=== PATIENT | female | born 1955 | race Caucasian/White ===

== ENCOUNTER → 2019-02-21 | Outpatient (CLI) | payer BC ==
--- NOTE | 2019-02-21 11:49 | RAD ---
EXAM DESCRIPTION: Pelvis CLINICAL HISTORY: 63 years Female, M25.561, M25.551 COMPARISON: None. FINDINGS: Single view of the pelvis demonstrates the bony pelvic ring intact. Each hip is normally aligned without evidence of fracture or dislocation. The SI joints are unremarkable. Advanced lower lumbar facet arthropathy and likely degenerative disc disease is noted. IMPRESSION: Negative pelvis one view. Electronically signed by: Farhat Smith MD 02/21/2019 11:47 AM CDT
--- NOTE | 2019-02-21 11:50 | RAD ---
EXAM DESCRIPTION: Knee,Right Complete CLINICAL HISTORY: 63 years, Female, M25.561, M25.551 COMPARISON: None TECHNIQUE: Four views right knee FINDINGS: Four views right knee demonstrate moderate joint effusion or hemarthrosis. Joint space narrowing medially is present. Patella appears intact. Slight deformity of the fibular shaft on the lateral view suggests possibly an old healed fracture but no acute injury noted. IMPRESSION: 1. Sclerosis and joint space narrowing medially with a small marginal osteophytes consistent with moderately advanced medial degenerative osteoarthropathy. 2. No acute fracture of the knee noted although joint effusion or hemarthrosis suggests the possibility of internal derangement. Electronically signed by: Farhat Smith MD 02/21/2019 11:48 AM CDT
== END ==
LOC: RAD 11:00
PROVIDERS: ATTEND Orthopaedic Surgery
DX: M25.761 Osteophyte, right knee (principal); M25.861 Other specified joint disorders, right knee; M25.551 Pain in right hip

== ENCOUNTER → 2019-09-22 | Outpatient (CLI) | payer BC | LOC: LAB.NP 11:54 | PROVIDERS: ATTEND Orthopaedic Surgery | DX: M17.11 Unilateral primary osteoarthritis, right knee (principal) ==

== ENCOUNTER → 2020-07-16 | Outpatient (CLI) | payer MEDICARE, OTHER ==
--- NOTE | 2020-07-16 10:16 | RAD ---
EXAM DESCRIPTION: Knee,Right Complete CLINICAL HISTORY: 64 years Female, PAIN IN RIGHT KNEE COMPARISON: Right knee radiographs 02/21/2019 TECHNIQUE: 4 view radiograph of the right knee. IMPRESSION: No acute displaced fracture. Severe joint space narrowing at the medial weightbearing knee compartment as before but with moderately worsened subchondral sclerosis of the medial tibial plateau and medial femoral condyle. Increased moderate medial joint line osteophytes. Ill-defined calcific density centrally within the weightbearing knee compartments likely representing meniscal degeneration. Moderate patellofemoral arthrosis. Large knee joint effusion. Mild lateral patellar tilt but no subluxation. No soft tissue defect or radiopaque foreign body. Electronically signed by: Blas Jim MD 07/16/2020 10:14 AM CDT
--- NOTE | 2020-07-16 10:20 | RAD ---
EXAM DESCRIPTION: Pelvis CLINICAL HISTORY: 64 years Female, HIP PAIN RIGHT COMPARISON: 02/21/2019. TECHNIQUE: Single view radiograph of the pelvis. IMPRESSION: Partially obscured sacrum and coccyx by overlying bowel. No acute displaced fracture. No dislocation. Mild right and moderate left arthrosis of the hips. Signal is within the right and left hemipelvis. Mild sclerosis of the SI joints and pubic joints. Lumbar spondylosis. Electronically signed by: Blas Jim MD 07/16/2020 10:18 AM CDT
== END ==
LOC: RAD 07:59
PROVIDERS: ATTEND Orthopaedic Surgery
DX: M16.0 Bilateral primary osteoarthritis of hip (principal); M47.896 Other spondylosis, lumbar region; M53.3 Sacrococcygeal disorders, not elsewhere classified; M17.11 Unilateral primary osteoarthritis, right knee; M25.761 Osteophyte, right knee; M85.861 Other specified disorders of bone density and structure, right lower leg; M22.8X1 Other disorders of patella, right knee; M25.461 Effusion, right knee

== ENCOUNTER → 2020-10-30 | Outpatient (CLI) | payer MEDICARE, OTHER ==
--- NOTE | 2020-10-31 09:34 | RAD ---
EXAM DESCRIPTION: Chest,2 Views CLINICAL HISTORY: PRE-OP COMPARISON: None TECHNIQUE: PA/lateral FINDINGS: Healed left rib fractures. Heart size is normal with normal pulmonary vascularity. No pleural effusion or pneumothorax. Lungs are clear with no consolidating infiltrate. Lateral view shows intact sternum and spurring in the T-spine. IMPRESSION: No acute process is identified in the chest. Electronically signed by: David Weinberg MD 10/31/2020 9:32 AM [employer]
== END ==
LOC: YCFC.O 16:01
PROVIDERS: ATTEND Family Medicine
DX: Z01.818 Encounter for other preprocedural examination (principal); Z01.89 Encounter for other specified special examinations

== ENCOUNTER 2020-11-13 05:52 | Inpatient (IN) | payer MEDICARE, OTHER ==
[2020-11-13] MEDS ORDERED: SODIUM CHLORIDE 0.9% 100ML 100 ML IVPB ONE (06:38)
[2020-11-13] MEDS ORDERED: LACTATED RINGERS 1,000 ML ONE (06:38)
[2020-11-13] MEDS ORDERED: ceFAZolin SODIUM 1 GM VIAL ONE (06:38)
[2020-11-13] MEDS ORDERED: TRANEXAMIC ACID 1,000 MG/10 ML VIAL ONE ×2 (06:38→06:39)
[2020-11-13] MEDS ORDERED: SODIUM CHL 0.9% 100ML MINI-BAG 100 ML IVPB ONE (06:38)
[2020-11-13] MEDS ORDERED: SODIUM CHLORIDE 0.9% 250ML 250 ML ONE (06:38)
[2020-11-13] MEDS ORDERED: VANCOMYCIN HCL INJ 1,000 MG VIAL IVPB ONE ×2 (06:38→09:43)
[2020-11-13] MEDS ORDERED: TRANEXAMIC ACID 1,000 MG/10 ML VIAL IV ONE (09:32)
[2020-11-13] MEDS ORDERED: LEVALBUTEROL NEBS 1.25 MG/3 ML VIAL NEB ONE (10:19)
[2020-11-13] MEDS ORDERED: FAMOTIDINE INJ 10 MG/ML VIAL IV ONE (10:22)
[2020-11-13] MEDS ORDERED: HYDROmorphone HCL INJ 2 MG/ML VIAL ONE (10:22)
[2020-11-13] MEDS ORDERED: KETAMINE HCL 100 MG/ML VIAL ONE (10:22)
[2020-11-13] MEDS ORDERED: MIDAZOLAM INJ 2 MG/2 ML VIAL ONE ×2 (10:23→10:37)
[2020-11-13] MEDS: ceFAZolin SODIUM 1 GM VIAL ONE ×3 (11:22→12:21)
[2020-11-13] MEDS: BUPIVACAINE 0.5% 30 ML VIAL INJ ONE ×2 (11:22→11:56)
[2020-11-13] MEDS: VANCOMYCIN HCL INJ 1,000 MG VIAL IVPB ONE ×3 (11:22→12:21)
[2020-11-13] MEDS: BUPIVACAINE LIPOSOME 13.3 MG/ML VIAL INJ ONE ×2 (11:22→11:56)
[2020-11-13] MEDS ORDERED: DEXMEDETOMIDINE HCL 200 MCG/2 ML INJ IV ONE (11:25)
[2020-11-13] MEDS ORDERED: ELECTROLYTE-A 1,000 ML IVS ONE (12:52)
[2020-11-13] MEDS ORDERED: NALOXONE HCL INJ 0.4 MG/ML VIAL IV PRN (13:46)
[2020-11-13] MEDS ORDERED: ALUMINUM & MAGNESIUM HYDROXIDE 30 ML UD PO PRN (13:46)
[2020-11-13] MEDS ORDERED: hydrOXYzine HCl 25 MG TAB PO PRN (13:46)
[2020-11-13] MEDS ORDERED: CYCLOBENZAPRINE HCL 10 MG TAB PO PRN (13:46)
[2020-11-13] MEDS ORDERED: ZOLPIDEM TARTRATE 5 MG TAB PO PRN (13:46)
[2020-11-13] MEDS ORDERED: traMADol HCL 50 MG TAB PO PRN (13:46)
[2020-11-13] MEDS ORDERED: ACETAMINOPHEN 500 MG TAB PO PRN (13:46)
[2020-11-13] MEDS ORDERED: DEX 5% W/NACL 0.45% 1000ML 1,000 ML IVS PRN (13:46)
[2020-11-13] MEDS ORDERED: PROMETHAZINE HCL INJ 25 MG in SODIUM CHLORIDE 0.9% 50ML 50 ML IVPB PRN (13:46)
[2020-11-13] MEDS ORDERED: PROMETHAZINE HCL INJ 12.5 MG in SODIUM CHLORIDE 0.9% 50ML 50 ML IVPB PRN (13:46)
[2020-11-13] MEDS ORDERED: BISACODYL SUPPOSITORY 10 MG PR PRN (13:46)
[2020-11-13] MEDS ORDERED: SODIUM CHLORIDE 0.9% (FLUSH) 10 ML SYG IV PRN (13:46)
[2020-11-13] MEDS ORDERED: MORPHINE SULFATE INJ 10 MG/ML VIAL IV PRN (13:46)
[2020-11-13] MEDS ORDERED: ACETAMINOPHEN 325 MG TAB PO PRN (13:46)
[2020-11-13] MEDS ORDERED: MORPHINE SULFATE INJ 10 MG/ML VIAL IM PRN (13:46)
[2020-11-13] MEDS ORDERED: BENZOCAINE-MENTH LOZ (CEPACOL) 1 EA LOZ MT PRN (13:46)
[2020-11-13] MEDS ORDERED: TRANEXAMIC ACID INJ 1,000 MG in SODIUM CHLORIDE 0.9% 100ML 100 ML IVPB ONE (13:46)
[2020-11-13] MEDS ORDERED: MAGNESIUM HYDROXIDE 30 ML UD PO PRN (13:46)
[2020-11-13] MEDS ORDERED: CADD ADMIN SET 1 EA PKG INJ ONE (13:57)
--- NOTE | 2020-11-13 13:57 | RAD ---
EXAM DESCRIPTION: Knee,Right 1 or 2 Views CLINICAL HISTORY: 64 years Female, POST OP COMPARISON: None. Findings: Location: Right knee Recent right total knee arthroplasty. No evidence of hardware complication. No acute fracture or dislocation. Expected postsurgical appearance of the overlying soft tissues. IMPRESSION: Recent right total knee arthroplasty. No evidence of hardware complication. Electronically signed by: Ashish Garrido MD 11/13/2020 1:56 PM [facility]
[2020-11-13] MEDS ORDERED: MORPHINE PCA 1 MG/ML 100 ML BAG IVPB SCH (14:00)
[2020-11-13] MEDS ORDERED: IV SET AND CAP CHANGE INJ INJ SCH (14:00)
[2020-11-13] MEDS ORDERED: PROPOFOL 200 MG/20 ML VIAL IV ONE (15:35)
[2020-11-13] MEDS ORDERED: MAGNESIUM SULFATE INJ 1 GM/2 ML VIAL IVPB ONE (15:35)
[2020-11-13] MEDS ORDERED: SODIUM CHLORIDE 0.9% 50 ML VIAL INJ ONE (15:35)
[2020-11-13] MEDS ORDERED: EPINEPHrine HCL AMP 1 MG/ML AMP IVPB ONE (15:35)
[2020-11-13] MEDS ORDERED: DEXAMETHASONE INJ 10 MG/ML VIAL IV ONE (15:35)
[2020-11-13] MEDS: CELECOXIB 100 MG CAP PO SCH (17:03)
[2020-11-13] MEDS: VANCOMYCIN HCL INJ 1,000 MG in SODIUM CHLORIDE 0.9% 250ML 250 ML IVPB SCH (17:11)
[2020-11-13] MEDS: ceFAZolin SODIUM 2 GM in SODIUM CHLORIDE 0.9% 100ML 100 ML IVPB SCH (17:11)
[2020-11-13] MEDS ORDERED: DOCUSATE CALCIUM 240 MG CAP ONE (19:22)
[2020-11-13] MEDS ORDERED: ENOXAPARIN SODIUM 30 MG/0.3 ML SYG SUBCU ONE (19:23)
[2020-11-13] MEDS: TEMAZEPAM 15 MG CAP PO PRN ×2 (20:09→21:32)
[2020-11-13] MEDS: DOCUSATE CALCIUM 240 MG CAP PO SCH (20:09)
--- NOTE | 2020-11-13 22:15 | RAD ---
EXAM DESCRIPTION: Fluoroscopy Up to 1Hr CLINICAL HISTORY: 64 years Female, RIGHT TKA COMPARISON: None. IMPRESSION: Operative changes of right knee arthroplasty. Please see procedure report for full details. Fluoroscopy time: 3 seconds Fluoroscopic images: 1 Total DAP: mGy-m2 Electronically signed by: Blas Jim MD 11/13/2020 10:[address] [facility] [facility]
[2020-11-13] MEDS: ENOXAPARIN SODIUM 30 MG/0.3 ML SYG SUBCU SCH (22:16)
[2020-11-14] MEDS: ceFAZolin SODIUM 2 GM in SODIUM CHLORIDE 0.9% 100ML 100 ML IVPB SCH ×2 (00:03→07:33)
[2020-11-14] MEDS: VANCOMYCIN HCL INJ 1,000 MG in SODIUM CHLORIDE 0.9% 250ML 250 ML IVPB SCH (05:28)
[2020-11-14] MEDS ORDERED: MAGNESIUM OXIDE 400 MG TAB ONE (07:18)
[2020-11-14] MEDS: CELECOXIB 100 MG CAP PO SCH ×2 (07:33→17:24)
[2020-11-14] MEDS: MAGNESIUM OXIDE 400 MG TAB PO SCH (07:39)
[2020-11-14] MEDS ORDERED: LEVOTHYROXINE SODIUM 0.075 MG TAB ONE (09:32)
[2020-11-14] MEDS ORDERED: ALPRAZolam 0.5 MG TAB ONE (09:45)
[2020-11-14] MEDS ORDERED: NON-FORMULARY MEDICATION 1 EA MIS (Alprazolam [Xanax] 1 MG) PO SCH (09:45)
[2020-11-14] MEDS: CETIRIZINE HCL 10 MG TAB PO SCH (09:52)
[2020-11-14] MEDS: LEVOTHYROXINE SODIUM 0.075 MG TAB PO SCH (09:52)
[2020-11-14] MEDS: ALPRAZolam 0.5 MG TAB PO SCH (10:30)
[2020-11-14] MEDS: NICOTINE PATCH 14 MG TD SCH (10:43)
[2020-11-14] MEDS: ENOXAPARIN SODIUM 30 MG/0.3 ML SYG SUBCU SCH ×2 (10:43→22:43)
--- NOTE | 2020-11-14 13:33 | CONS ---
SUPERVISING PHYSICIAN: Hillary Hernandez MD DATE OF CONSULTATION: 11/14/20 REASON FOR CONSULTATION: Medical management postoperative total knee arthroplasty. HISTORY OF PRESENT ILLNESS: This is a 64-year-old female patient who was admitted to the hospital yesterday for operative intervention for a right total knee arthroplasty. She has osteoarthritis of that right knee and multiple conservative measures have failed to bring her any relief. She has requested Dr. Zeferino Kaiser, orthopedic surgeon, for operative intervention. She had no intraoperative complications and was then admitted to the hospital in stable condition. PAST MEDICAL HISTORY: 1. Hypothyroidism. 2. Hyperlipidemia. 3. Anxiety. PAST SURGICAL HISTORY: 1. Meniscal repair to the right knee. OUTPATIENT MEDICATIONS: Per the EMR and awaiting verification. ALLERGIES: NO KNOWN DRUG ALLERGIES. SOCIAL HISTORY: She lives in [place]. She smokes about one pack of cigarettes daily. There is no history of ETOH or illicit drug use. REVIEW OF SYSTEMS: Negative except as per history of present illness. PHYSICAL EXAMINATION: VITAL SIGNS: Temperature 99, heart rate 79, blood pressure 128/77, respiratory rate 16, O2 saturation 97% on room air. GENERAL: This is a 64-year-old female patient sitting up on the side of her bed. She is in no acute distress. HEENT: Normocephalic, atraumatic. Pupils are equal and reactive. Oropharynx is clear. NECK: Supple with full range of motion. RESPIRATORY: Essentially clear to auscultation bilaterally. CARDIOVASCULAR: Regular rate and rhythm. GASTROINTESTINAL: Abdomen is soft, nondistended, nontender. Bowel sounds are positive. EXTREMITIES: She has an RUPESH wrap to her right leg, a dressing to the right knee that is dry and intact. Bilateral pedal pulses are palpable at +2. NEUROLOGIC: Awake, alert and oriented times three. SKIN: [place], warm and dry. LABORATORY: Hemoglobin 11.5, hematocrit 33.8. UDS was negative except for positive for benzodiazepines which she is on routinely. Labs and operative procedures are per the EMR. IMPRESSION: 1. Osteoarthritis of the right knee status post right total knee arthroplasty, postoperative day #1, performed by Dr. Zeferino Kaiser, orthopedic surgeon. 2. Hypothyroidism. 3. Hyperlipidemia. 4. Anxiety. PLAN: The patient has had her routine medications restarted. Operative issues will be per Dr. Kaiser. She has had her morning physical therapy and did very well. We will continue with that until discharge. After discharge, she will continue at [facility] for physical therapy as an outpatient. I have encouraged good pulmonary hygiene. We will continue to monitor and treat as needed. #[id number] MTDD
[2020-11-14] MEDS: HYDROcodone 5MG/APAP 325MG 1 EA TAB PO PRN (14:11)
[2020-11-14] MEDS ORDERED: ESCITALOPRAM 10 MG TAB ONE (18:56)
[2020-11-14] MEDS ORDERED: SIMVASTATIN 20 MG TAB ONE (18:56)
[2020-11-14] MEDS: ESCITALOPRAM 10 MG TAB PO SCH (20:21)
[2020-11-14] MEDS: DOCUSATE CALCIUM 240 MG CAP PO SCH (20:21)
[2020-11-14] MEDS: SIMVASTATIN 20 MG TAB PO SCH (20:22)
[2020-11-14] MEDS ORDERED: NON-FORMULARY MEDICATION 1 EA MIS (Simvastatin [Zocor] 40 MG) PO SCH (21:00)
[2020-11-14] MEDS: ONDANSETRON INJ 4 MG/2 ML VIAL IV PRN (21:13)
[2020-11-15] MEDS: CELECOXIB 100 MG CAP PO SCH ×2 (07:31→16:16)
[2020-11-15] MEDS ORDERED: SODIUM CHLORIDE 0.9% 50ML 50 ML ONE (07:57)
[2020-11-15] MEDS ORDERED: ceFAZolin SODIUM 1 GM VIAL ONE ×2 (07:57→22:58)
[2020-11-15] MEDS: LEVOTHYROXINE SODIUM 0.075 MG TAB PO SCH (08:33)
[2020-11-15] MEDS: ceFAZolin SODIUM 2 GM in SODIUM CHLORIDE 0.9% 100ML 100 ML IVPB SCH ×3 (08:33→23:45)
[2020-11-15] MEDS: CETIRIZINE HCL 10 MG TAB PO SCH (08:33)
[2020-11-15] MEDS: ALPRAZolam 0.5 MG TAB PO SCH (08:33)
[2020-11-15] MEDS: MAGNESIUM OXIDE 400 MG TAB PO SCH (08:33)
[2020-11-15] MEDS: BIFIDOBACTERIUM INFANTIS 4 MG CAP PO SCH (08:34)
[2020-11-15] MEDS: NICOTINE PATCH 14 MG TD SCH (08:34)
[2020-11-15] MEDS: ONDANSETRON INJ 4 MG/2 ML VIAL IV PRN (08:55)
[2020-11-15] MEDS: SODIUM CHLORIDE 0.9% (FLUSH) 10 ML SYG IV SCH ×2 (09:00→20:45)
--- NOTE | 2020-11-15 09:02 | PN ---
DATE: 11/14/20 SUBJECTIVE: Ms. Luo is doing well. She is up to a chair with the knee bent to 90 degrees with no pain. OBJECTIVE: Afebrile. Vital signs stable. Dressing is clean, dry and intact. ASSESSMENT: Status post total knee arthroplasty. PLAN: The plan at this point is to continue weightbearing as tolerated. #[id number] MTDD
--- NOTE | 2020-11-15 09:05 | PN ---
DATE: 11/15/20 SUBJECTIVE: Ms. Luo had some nausea overnight. OBJECTIVE: Afebrile. Vital signs stable. Wound is clean. There are no signs or symptoms of infection. ASSESSMENT: 1. Status post total knee arthroplasty. 2. Nausea. PLAN: At this point, she has improved somewhat with Phenergan and Zofran. She is going to continue with limiting her diet until she feels as though she is able to tolerate. Otherwise, she will continue with physical therapy. [facility][id number]
--- NOTE | 2020-11-15 09:13 | OP ---
DATE OF PROCEDURE: 11/13/20 PREOPERATIVE DIAGNOSIS: 1. Osteoarthritis of the knee. POSTOPERATIVE DIAGNOSIS: 1. Osteoarthritis of the knee. PROCEDURE: 1. Total knee arthroplasty. SURGEON: Zeferino Kaiser MD. SURVEILLANCE SUPERVISOR: Haris Newman CST, SA-C. ANESTHESIA: General anesthesia. COMPLICATIONS: None. FINDINGS: Severe arthritis of the knee. INDICATION: Ms. Luo has a long history of knee pain for which she has undergone treatment and has failed conservative measures. She has requested operative intervention. After discussing the risks, benefits and alternatives to operative intervention, the patient has given informed consent for total knee arthroplasty. PROCEDURE: The patient was brought to the Operating Room and placed in supine position. General anesthesia was induced and the patient's leg was sterilely prepped and draped. Following prepping and draping, the distal femur was exposed and using an intramedullary guide, the distal femoral cut was made. The appropriate sized cutting block was measured, pinned into place, and the anterior, posterior, and chamfer cuts were made. The ACL was transected and the tibia was subluxed. Both the medial and lateral menisci were removed. An intramedullary guide was used to make the proximal tibial cut. The appropriate sized base plate was placed and a trial polyethylene was placed. The trial femur was placed, the knee was reduced, and the knee was taken through a range of motion. The knee was stable in anterior, posterior, varus and valgus stress. The patella tracked anatomically without evidence of subluxation or dislocation. After trialing, the trial components were removed and the bony surfaces were thoroughly irrigated with saline. Following irrigation, the surfaces were dried and the final components were cemented into place. The excess cement was removed and the remaining cement was allowed to cure. The knee was again taken through a range of motion to confirm stability. The wound was then irrigated with saline and closure was performed using PDS to approximate the arthrotomy followed by closure of the subcutaneous tissues with a combination of running and interrupted Monocryl sutures. Sterile dressing was placed. The patient was awoken from anesthesia and taken to Recovery. COMPONENTS: [place] Triathlon knee, size 5 femur, size 5 tibia, 9 mm insert. POSTOPERATIVE PLAN: The patient will be weight-bearing as tolerated on postoperative day 1. #[id number] MTDD
[2020-11-15] MEDS: VANCOMYCIN HCL INJ 1,000 MG in SODIUM CHLORIDE 0.9% 250ML 250 ML IVPB SCH ×2 (09:21→20:41)
[2020-11-15] MEDS: ENOXAPARIN SODIUM 30 MG/0.3 ML SYG SUBCU SCH ×2 (10:48→22:51)
[2020-11-15] MEDS: HYDROcodone 5MG/APAP 325MG 1 EA TAB PO PRN ×2 (13:03→17:20)
[2020-11-15] MEDS ORDERED: SIMVASTATIN 10 MG TAB PO ONE (19:16)
[2020-11-15] MEDS ORDERED: ENOXAPARIN SODIUM 30 MG/0.3 ML SYG SUBCU ONE (19:16)
[2020-11-15] MEDS: SIMVASTATIN 20 MG TAB PO SCH (20:39)
[2020-11-15] MEDS: ESCITALOPRAM 10 MG TAB PO SCH (20:40)
[2020-11-15] MEDS: DOCUSATE CALCIUM 240 MG CAP PO SCH ×2 (20:43→20:49)
[2020-11-16] MEDS: HYDROcodone 5MG/APAP 325MG 1 EA TAB PO PRN ×2 (07:29→11:45)
[2020-11-16] MEDS: CELECOXIB 100 MG CAP PO SCH (07:29)
[2020-11-16] MEDS: ceFAZolin SODIUM 2 GM in SODIUM CHLORIDE 0.9% 100ML 100 ML IVPB SCH (07:30)
--- NOTE | 2020-11-16 08:04 | PN ---
SUPERVISING PHYSICIAN: Hillary Hernandez MD DATE: 11/15/20 SUBJECTIVE: The patient has been nauseated and actually thrown up several times today. She did not get to do her physical therapy this morning, but did get through a therapy session this afternoon. She initially was supposed to be sent home, but due to her nausea and vomiting, she will hopefully discharge tomorrow. Otherwise, no chest pain and physical therapy reported that she did well this afternoon. OBJECTIVE: VITAL SIGNS: Temperature 98, heart rate 78, blood pressure 118/67, respiratory rate 18, O2 saturation 98% on 2 liters nasal cannula. RESPIRATORY: Essentially clear to auscultation bilaterally. CARDIAC: Regular rate and rhythm. EXTREMITIES: She has a dressing to her right knee that is dry and intact. Bilateral pedal pulses are palpable at +2. NEUROLOGIC: She is somewhat lethargic, but oriented x3. LABORATORY: There are no labs or films to report at this time. ASSESSMENT: 1. Osteoarthritis of the right knee status post right total knee arthroplasty, postoperative day #2, surgery performed by Dr. Zeferino Kaiser, orthopedic surgeon. 2. Hypothyroidism. 3. Hyperlipidemia. 4. Anxiety. PLAN: We will continue present supportive care. She will continue her physical therapy for strengthening and conditioning. Orthopedic issues will be per Dr. Kaiser. She does have antiemetics for nausea and hopefully that will improve by tomorrow and she can be discharged. I did send in tramadol to her pharmacy in [place] for pain control at discharge. [facility] was consulted and there were no issues found. She is to have physical therapy here at [facility]. We will continue to monitor closely and follow as needed. #[id number] MTDD
[2020-11-16] MEDS: CETIRIZINE HCL 10 MG TAB PO SCH (08:22)
[2020-11-16] MEDS: NICOTINE PATCH 14 MG TD SCH (08:22)
[2020-11-16] MEDS: ALPRAZolam 0.5 MG TAB PO SCH (08:22)
[2020-11-16] MEDS: LEVOTHYROXINE SODIUM 0.075 MG TAB PO SCH (08:22)
[2020-11-16] MEDS: MAGNESIUM OXIDE 400 MG TAB PO SCH (08:22)
[2020-11-16] MEDS: BIFIDOBACTERIUM INFANTIS 4 MG CAP PO SCH (08:22)
[2020-11-16] MEDS: SODIUM CHLORIDE 0.9% (FLUSH) 10 ML SYG IV SCH (08:23)
[2020-11-16] MEDS: VANCOMYCIN HCL INJ 1,000 MG in SODIUM CHLORIDE 0.9% 250ML 250 ML IVPB SCH (08:34)
--- NOTE | 2020-11-16 08:45 | PN ---
DATE: 11/16/20 SUBJECTIVE: Venus is much improved since yesterday. OBJECTIVE: Afebrile. Vital signs stable. Wound is clean. There are no signs or symptoms of infection. ASSESSMENT: Status post total knee arthroplasty. PLAN: The plan is for her to be discharged today and begin physical therapy in 3 days. We will see her back in 2 weeks. She has been instructed to return immediately should any change in her condition occur. #[id number] MTDD
[2020-11-16 09:05] VITALS: BP 129/74; TEMP 99.2
[2020-11-16] MEDS: ENOXAPARIN SODIUM 30 MG/0.3 ML SYG SUBCU SCH (10:49)
[2020-11-16 11:23] VITALS: O2SAT 93
[2020-11-16] MEDS ORDERED: RIVAROXABAN 10 MG TAB PO ONE (11:30)
--- NOTE | 2020-11-16 14:32 | DS ---
SUPERVISING PHYSICIAN: Hillary Hernandez MD ADMISSION DIAGNOSIS: 1. Osteoarthritis of the right knee status post right total knee arthroplasty, postoperative day #1, performed by Dr. Zeferino Kaiser, orthopedic surgeon. 2. Hypothyroidism. 3. Hyperlipidemia. 4. Anxiety. DISCHARGE DIAGNOSIS: ASSESSMENT: 1. Osteoarthritis of the right knee status post right total knee arthroplasty, postoperative day #3, surgery performed by Dr. Zeferino Kaiser, orthopedic surgeon. 2. Hypothyroidism. 3. Hyperlipidemia. 4. Anxiety. REASON FOR HOSPITALIZATION: This is a 64-year-old female patient who was admitted to the hospital yesterday for operative intervention for a right total knee arthroplasty. She has osteoarthritis of that right knee and multiple conservative measures have failed to bring her any relief. She has requested Dr. Zeferino Kaiser, orthopedic surgeon, for operative intervention. She had no intraoperative complications and was then admitted to the hospital in stable condition. LABORATORY: Postoperative hemoglobin 11.5, hematocrit 33.8. Preoperative drug screen was positive for benzodiazepines, which she does take Xanax. CONSULTATIONS: Hospitalist consultation, see Nilda Iraheta's full consultation note. PROCEDURE: Right total knee arthroplasty. Please see Dr. Kaiser's full operative report for details. Preoperative and postoperative x-rays, please see those for full details. HOSPITAL COURSE: Ms. Luo was admitted initially for elective right total knee arthroplasty. She had no intraoperative complications. She was followed postoperatively. She did well with her physical therapy efforts and was showing good control of the pain. She was tolerating her diet. She has no complications. It was felt she was clinically stable enough to be discharged to continue with outpatient management with continued physical therapy at the [facility]. PLAN: Ms. Luo was discharged to followup with Dr. Kaiser on 11/29/19 at 9:30 AM. She was to resume her usual diet. Physical activity is as per physical therapy. She is to utilize a walker. She can shower, no tub baths. Wound care per Dr. Kaiser's postoperative discharge instructions. She was given instructions to call Dr. Kaiser's office or go the Emergency Room for any concerning symptoms. Medications prescribed on discharge included: 1. Align 4 mg daily while on antibiotics. 2. Bactrim 800/160 mg twice daily for 5 days, no refills. 3. Tramadol 50 mg q.4h. as needed for 5 days, #30, no refills. 4. Xarelto 10 mg daily, #8, samples provided on discharge, no refills. CONDITION ON DISCHARGE: Stable and improved. DISPOSITION: The patient was discharged home. [facility][id number] [facility]
[2020-11-16] MEDS ORDERED: BISACODYL SUPPOSITORY 10 MG PR ONE (21:00)
[2020-11-16] MEDS ORDERED: MAGNESIUM HYDROXIDE 30 ML UD PO ONE (21:00)
== END 2020-11-16 12:20 | disposition home or self-care (01) | DRG 470 ==
LOC: AMB 05:52 → MS 14:15
PROVIDERS: ADMIT Orthopaedic Surgery; ATTEND Nurse Practitioner Family
PROC: 0SRC0J9 Replacement of Right Knee Joint with Synthetic Substitute, Cemented, Open Approach (ICD-10-PCS; principal; 2020-11-13 10:32)
DX: M17.11 Unilateral primary osteoarthritis, right knee (principal); E03.9 Hypothyroidism, unspecified; E78.5 Hyperlipidemia, unspecified; F41.9 Anxiety disorder, unspecified; F17.210 Nicotine dependence, cigarettes, uncomplicated; Z79.1 Long term (current) use of non-steroidal anti-inflammatories (NSAID); Z79.82 Long term (current) use of aspirin; R11.2 Nausea with vomiting, unspecified